=== PATIENT | male | born 1945 | race Caucasian/White ===

== ENCOUNTER → 2016-06-23 | Outpatient (CLI) | payer OTHER | END | disposition home or self-care (01) | LOC: CVU 10:30 | PROVIDERS: ATTEND Nurse Practitioner Family | DX: I73.9 Peripheral vascular disease, unspecified (principal); R60.0 Localized edema | CPT/HCPCS: 93970 ==

== ENCOUNTER 2016-07-01 10:21 | Day surgery (SDC) | payer OTHER ==
[2016-06-29 10:41] LABS: BLOOD UREA NITROGEN 13 mg/dL (7-18)
[2016-06-29 10:45] LABS: ASPARTATE AMINO TRANSFERASE 13 U/L (15-37)
[~2016-07-01] VITALS: Ht 172.7 cm; Wt 98.0 kg
[~2016-07-01 10:21] MED LIST: ATOR20TA9 PO; IBUP200C PO; LEVO88TA4 PO; OMEP-110 PO; TAMS0.4C2 PO
[2016-07-01] MEDS ORDERED: SODIUM CHLORIDE 0.9% 1,000 ML IV SCH (10:41)
[2016-07-01 10:42] VITALS: BP 129/91
[2016-07-01] MEDS ORDERED: MIDAZOLAM 1 MG/ML, 5ML ONE (12:31)
[2016-07-01] MEDS ORDERED: PROTAMINE SULFATE 10 MG/ML, 25ML ONE (12:31)
[2016-07-01] MEDS ORDERED: NITROGLYCERIN 5 MG/ML, 10ML ONE (12:32)
[2016-07-01] MEDS ORDERED: FLUMAZENIL 0.1 MG/1 ML, 5ML ONE (12:32)
[2016-07-01] MEDS ORDERED: FENTANYL PF 100 MCG/2ML ONE (12:32)
[2016-07-01] MEDS ORDERED: NALOXONE 1 MG/ML, 2ML ONE (12:32)
[2016-07-01] MEDS ORDERED: HEPARIN 1,000 UNITS/ML, 10ML ONE (12:32)
[2016-07-01] MEDS ORDERED: LIDOCAINE 2%, 20ML ONE (12:46)
[2016-07-01] MEDS ORDERED: VISIPAQUE 270 MG/ML, 150ML BOTTLE ONE (14:00)
[2016-07-01] MEDS ORDERED: CLOPIDOGREL 300 MG TABLET ONE (14:05)
== END 2016-07-01 16:35 | disposition home or self-care (01) ==
LOC: OUT 10:21
PROVIDERS: ATTEND Internal Medicine Cardiovascular Disease
DX: I70.211 Atherosclerosis of native arteries of extremities with intermittent claudication, right leg (principal); F17.210 Nicotine dependence, cigarettes, uncomplicated; J44.9 Chronic obstructive pulmonary disease, unspecified; F10.10 Alcohol abuse, uncomplicated; Z79.01 Long term (current) use of anticoagulants
CPT/HCPCS: 36415; 37220; 75625; 75716; 80053; 85025; 85610; 85730; 99156; C1725; C1760; C1769; C1894; C2623; J1644; J2250; J3010; J3490; J7030; Q9966; 99157; J2720; J2310

== ENCOUNTER 2016-09-03 09:58 | Inpatient (IN) | payer OTHER ==
[~2016-09-03] VITALS: Ht 172.7 cm; Wt 100.8 kg
[~2016-09-03 09:58] MED LIST changes: +CLOP75TA PO
[2016-09-03 10:34] VITALS: BP 109/77
[2016-09-03] MEDS ORDERED: LACTATED RINGERS 1,000 ML IV SCH (10:40)
[2016-09-03] MEDS ORDERED: LIDOCAINE 1%, 2ML SQ PRN (11:00)
[2016-09-03] MEDS ORDERED: KETAMINE 10 MG/ML, 20ML ONE (12:13)
[2016-09-03] MEDS ORDERED: FENTANYL PF 250 MCG/5ML ONE (12:13)
[2016-09-03] MEDS ORDERED: ROCURONIUM 10 MG/ML ONE (12:37)
[2016-09-03] MEDS ORDERED: CEFAZOLIN 1,000 MG ONE (12:37)
[2016-09-03] MEDS ORDERED: SUCCINYLCHOLINE 20 MG/ML, 10ML ONE (12:37)
[2016-09-03] MEDS ORDERED: PROPOFOL 10 MG/ML, 20ML ONE (12:37)
[2016-09-03] MEDS ORDERED: TRANEXAMIC ACID 100 MG/ML, 10ML ONE (12:59)
[2016-09-03] MEDS ORDERED: ACETAMINOPHEN 650 MG/20.3 ML UDC ONE (13:44)
[2016-09-03] MEDS ORDERED: OXYcodone 5 MG/5 ML ORAL.SOL UDC ONE (13:44)
[2016-09-03] MEDS ORDERED: FENTANYL PF 100 MCG/2ML ONE ×2 (13:44→14:32)
[2016-09-03] MEDS: FENTANYL PF 100 MCG/2ML IV PRN ×3 (13:45→14:34)
[2016-09-03] MEDS ORDERED: MEPERIDINE/PF 25MG/0.5ML ONE (13:50)
[2016-09-03] MEDS ORDERED: HYDROmorphone 1 MG/ML, 1ML ONE ×2 (13:50→14:28)
[2016-09-03] MEDS: HYDROmorphone 1 MG/ML, 1ML IV PRN ×5 (13:54→14:53)
[2016-09-03] MEDS ORDERED: ACETAMINOPHEN 325 MG TABLET PO PRN (14:00)
[2016-09-03] MEDS ORDERED: PROMETHAZINE 25 MG/ML, 1ML IV PRN (14:00)
[2016-09-03] MEDS ORDERED: ALBUTEROL SULFATE 2.5 MG/3 ML NPPB PRN (14:00)
[2016-09-03] MEDS ORDERED: MEPERIDINE/PF 25MG/0.5ML IVPush PRN (14:00)
[2016-09-03] MEDS ORDERED: ONDANSETRON 2MG/ML, 2ML IVPush PRN (14:00)
[2016-09-03] MEDS ORDERED: OXYcodone 5 MG/5 ML ORAL.SOL UDC PO PRN (14:00)
[2016-09-03] MEDS ORDERED: ONDANSETRON 2MG/ML, 2ML ONE (14:46)
[2016-09-03] MEDS ORDERED: BISACODYL 10 MG SUPP PR PRN (16:00)
[2016-09-03] MEDS ORDERED: ALUMINUM/MAG/SIMETHICONE 30 ML UDC PO PRN (16:00)
[2016-09-03] MEDS ORDERED: SENNA/DOCUSATE TABLET PO PRN (16:00)
[2016-09-03 16:30] VITALS: BP 107/71
[2016-09-03] MEDS ORDERED: ONDANSETRON 2MG/ML, 2ML IV PRN (16:30)
[2016-09-03] MEDS ORDERED: HYDROcodone/APAP 7.5-325MG/15ML UDC PO PRN (16:30)
[2016-09-03] MEDS: POTASSIUM CHLORIDE 10 MEQ in D5%-0.45% NACL 1,000 ML IV SCH (16:43)
[2016-09-03] MEDS: KETOROLAC 30 MG/1 ML IV SCH (16:43)
[2016-09-03] MEDS: DIAZEPAM 5 MG TABLET PO PRN ×2 (16:43→23:08)
[2016-09-03] MEDS ORDERED: CEFAZOLIN PMX 1GM/50ML 50 ML IVPB SCH (17:00)
[2016-09-03] MEDS: OXYcodone 5 MG/5 ML ORAL.SOL UDC PO PRN ×2 (18:04→23:08)
[2016-09-03] MEDS: DOCUSATE 100 MG CAPSULE PO SCH (20:23)
[2016-09-03] MEDS: CEFAZOLIN PMX 1GM/50ML 50 ML IVPB SCH (20:24)
[2016-09-03 20:32] VITALS: BP 104/71
[2016-09-03] MEDS ORDERED: ZOLPIDEM 5MG TABLET PO PRN (21:00)
[2016-09-03] MEDS ORDERED: DOCUSATE 100 MG CAPSULE PO SCH (21:00)
[2016-09-03 23:15] VITALS: BP 120/78
[2016-09-04] MEDS: KETOROLAC 30 MG/1 ML IV SCH ×2 (00:19→07:52)
[2016-09-04] MEDS: OXYcodone 5 MG/5 ML ORAL.SOL UDC PO PRN ×5 (03:17→23:01)
[2016-09-04 03:47] VITALS: BP 104/69
[2016-09-04] MEDS: DIAZEPAM 5 MG TABLET PO PRN ×2 (03:57→07:53)
[2016-09-04] MEDS: CEFAZOLIN PMX 1GM/50ML 50 ML IVPB SCH (04:53)
[2016-09-04] MEDS: LEVOTHYROXINE 88 MCG TABLET PO SCH (05:40)
[2016-09-04] MEDS: ENOXAPARIN 40 MG/0.4 ML SQ SCH (05:40)
[2016-09-04 06:46] VITALS: BP 112/77
[2016-09-04] MEDS: DOCUSATE 100 MG CAPSULE PO SCH ×2 (07:52→23:01)
[2016-09-04] MEDS: TAMSULOSIN 0.4 MG CAP.ER.24H PO SCH (07:53)
[2016-09-04] MEDS: MULTIVITAMINS/MINERALS TABLET PO SCH (07:53)
[2016-09-04] MEDS: CLOPIDOGREL 75 MG TABLET PO SCH (07:53)
[2016-09-04 09:27] VITALS: BP 105/67
[2016-09-04] MEDS: POTASSIUM CHLORIDE 10 MEQ in D5%-0.45% NACL 1,000 ML IV SCH (12:14)
[2016-09-04 13:29] VITALS: BP 115/79
[2016-09-04] MEDS: ACETAMINOPHEN 325 MG TABLET PO PRN (17:05)
[2016-09-04 18:24] VITALS: BP 102/68
[2016-09-05 01:07] VITALS: BP 110/72
[2016-09-05] MEDS: DIAZEPAM 5 MG TABLET PO PRN ×3 (02:43→21:37)
[2016-09-05] MEDS: OXYcodone 5 MG/5 ML ORAL.SOL UDC PO PRN ×4 (02:43→21:37)
[2016-09-05] MEDS: POTASSIUM CHLORIDE 10 MEQ in D5%-0.45% NACL 1,000 ML IV SCH ×2 (04:21→21:37)
[2016-09-05] MEDS: LEVOTHYROXINE 88 MCG TABLET PO SCH (06:34)
[2016-09-05] MEDS: ENOXAPARIN 40 MG/0.4 ML SQ SCH (06:34)
[2016-09-05 06:49] VITALS: BP 124/85
[2016-09-05] MEDS: TAMSULOSIN 0.4 MG CAP.ER.24H PO SCH (07:53)
[2016-09-05] MEDS: MULTIVITAMINS/MINERALS TABLET PO SCH (07:53)
[2016-09-05] MEDS: CLOPIDOGREL 75 MG TABLET PO SCH (07:54)
[2016-09-05] MEDS: DOCUSATE 100 MG CAPSULE PO SCH ×2 (07:56→21:39)
[2016-09-05] MEDS: MAGNESIUM HYDROXIDE 8%, 30ML UDC PO PRN (11:20)
[2016-09-05 12:45] VITALS: BP 100/70
[2016-09-05 21:43] VITALS: BP 119/75
[2016-09-06] MEDS: ACETAMINOPHEN 325 MG TABLET PO PRN (01:35)
[2016-09-06] MEDS: OXYcodone 5 MG/5 ML ORAL.SOL UDC PO PRN ×4 (01:35→22:13)
[2016-09-06] MEDS ORDERED: ASPI-650 PO ×2 (02:07→02:09)
[2016-09-06] MEDS ORDERED: OXYC-229 PO (02:07)
[2016-09-06 02:41] VITALS: BP 102/67
[2016-09-06] MEDS: ENOXAPARIN 40 MG/0.4 ML SQ SCH (05:06)
[2016-09-06] MEDS: LEVOTHYROXINE 88 MCG TABLET PO SCH (05:06)
[2016-09-06 08:02] VITALS: BP 109/68
[2016-09-06] MEDS: DOCUSATE 100 MG CAPSULE PO SCH ×2 (08:48→22:13)
[2016-09-06] MEDS: CLOPIDOGREL 75 MG TABLET PO SCH (08:48)
[2016-09-06] MEDS: TAMSULOSIN 0.4 MG CAP.ER.24H PO SCH (08:48)
[2016-09-06] MEDS: MULTIVITAMINS/MINERALS TABLET PO SCH (08:48)
[2016-09-06 14:00] VITALS: BP 124/77
[2016-09-06] MEDS: POTASSIUM CHLORIDE 10 MEQ in D5%-0.45% NACL 1,000 ML IV SCH (17:21)
[2016-09-06 18:36] VITALS: BP 112/79
[2016-09-06] MEDS ORDERED: ACETAMINOPHEN 325 MG TABLET PO PRN (20:00)
[2016-09-06] MEDS ORDERED: BISACODYL 10 MG SUPP PR PRN (20:00)
[2016-09-06] MEDS ORDERED: ZOLPIDEM 5MG TABLET PO PRN (20:00)
[2016-09-06] MEDS ORDERED: HYDROcodone/APAP 7.5-325MG/15ML UDC PO PRN (20:00)
[2016-09-06] MEDS ORDERED: SENNA/DOCUSATE TABLET PO PRN (20:00)
[2016-09-07 02:00] VITALS: BP 106/73
[2016-09-07] MEDS: LEVOTHYROXINE 88 MCG TABLET PO SCH (05:18)
[2016-09-07] MEDS: ENOXAPARIN 40 MG/0.4 ML SQ SCH (05:18)
[2016-09-07] MEDS: OXYcodone 5 MG/5 ML ORAL.SOL UDC PO PRN ×5 (05:24→17:36)
[2016-09-07] MEDS: MAGNESIUM HYDROXIDE 8%, 30ML UDC PO PRN (06:09)
[2016-09-07 07:25] VITALS: BP 114/76
[2016-09-07] MEDS: DOCUSATE 100 MG CAPSULE PO SCH ×2 (07:58→19:44)
[2016-09-07] MEDS: TAMSULOSIN 0.4 MG CAP.ER.24H PO SCH (07:58)
[2016-09-07] MEDS: MULTIVITAMINS/MINERALS TABLET PO SCH (07:58)
[2016-09-07] MEDS: CLOPIDOGREL 75 MG TABLET PO SCH (07:58)
[2016-09-07] MEDS: POTASSIUM CHLORIDE 10 MEQ in D5%-0.45% NACL 1,000 ML IV SCH (11:42)
[2016-09-07 14:35] VITALS: BP 109/74
[2016-09-07 18:53] VITALS: BP 112/77
[2016-09-07] MEDS: DIAZEPAM 5 MG TABLET PO PRN (19:44)
[2016-09-08] MEDS: OXYcodone 5 MG/5 ML ORAL.SOL UDC PO PRN ×5 (00:51→22:08)
[2016-09-08 01:36] VITALS: BP 104/71
[2016-09-08] MEDS: ENOXAPARIN 40 MG/0.4 ML SQ SCH (05:25)
[2016-09-08] MEDS: DIAZEPAM 5 MG TABLET PO PRN ×2 (05:25→22:08)
[2016-09-08] MEDS: LEVOTHYROXINE 88 MCG TABLET PO SCH (05:25)
[2016-09-08 07:35] VITALS: BP 109/72
[2016-09-08] MEDS: POTASSIUM CHLORIDE 10 MEQ in D5%-0.45% NACL 1,000 ML IV SCH ×2 (07:48→20:10)
[2016-09-08] MEDS: TAMSULOSIN 0.4 MG CAP.ER.24H PO SCH (09:17)
[2016-09-08] MEDS: DOCUSATE 100 MG CAPSULE PO SCH ×2 (09:17→20:10)
[2016-09-08] MEDS: MULTIVITAMINS/MINERALS TABLET PO SCH (09:17)
[2016-09-08] MEDS: CLOPIDOGREL 75 MG TABLET PO SCH (09:17)
[2016-09-08 12:57] VITALS: BP 113/72
[2016-09-08 13:27] VITALS: BP 116/76
[2016-09-08 19:45] VITALS: BP 124/78
[2016-09-09 04:18] VITALS: BP 110/76
[2016-09-09] MEDS: OXYcodone 5 MG/5 ML ORAL.SOL UDC PO PRN ×4 (04:20→15:15)
[2016-09-09] MEDS: ENOXAPARIN 40 MG/0.4 ML SQ SCH (04:39)
[2016-09-09] MEDS: LEVOTHYROXINE 88 MCG TABLET PO SCH (04:39)
[2016-09-09 08:20] VITALS: BP 119/77
[2016-09-09] MEDS: TAMSULOSIN 0.4 MG CAP.ER.24H PO SCH (09:34)
[2016-09-09] MEDS: CLOPIDOGREL 75 MG TABLET PO SCH (09:34)
[2016-09-09] MEDS: MULTIVITAMINS/MINERALS TABLET PO SCH (09:35)
[2016-09-09] MEDS: DOCUSATE 100 MG CAPSULE PO SCH (09:35)
[2016-09-09 14:04] VITALS: BP 101/72
== END 2016-09-09 16:04 | DRG 481 ==
LOC: ORIP 09:58 → EDSTATUS 12:30 → 4NOR 15:26
PROVIDERS: ADMIT Orthopaedic Surgery; ATTEND Orthopaedic Surgery
PROC: 0QH736Z Insertion of Intramedullary Internal Fixation Device into Left Upper Femur, Percutaneous Approach (ICD-10-PCS; principal; 2016-09-03 12:30)
DX: M84.559A Pathological fracture in neoplastic disease, hip, unspecified, initial encounter for fracture (principal); C79.51 Secondary malignant neoplasm of bone; Z87.891 Personal history of nicotine dependence; E03.9 Hypothyroidism, unspecified; I73.9 Peripheral vascular disease, unspecified; E78.5 Hyperlipidemia, unspecified; K21.9 Gastro-esophageal reflux disease without esophagitis; Z79.899 Other long term (current) drug therapy
CPT/HCPCS: 76000; 88304; 88311; 88341; 88342; 93005; C1713; J0690; J1170; J1650; J1885; J2175; J2405; J2704; J3010; J3480; J3490; G0461; J0330; J7120

== ENCOUNTER → 2016-09-11 | Outpatient (CLI) | payer OTHER ==
[~2016-09-11] MED LIST changes: +ASPI-650 PO; +GADOBUTROL 10 MMOL/10 ML PFS ONE; +LIDOCAINE 1%, 2ML ONE; +OXYC-229 PO
== END ==
LOC: RAD 15:46
PROVIDERS: ATTEND Radiology Radiation Oncology
DX: Z02.9 Encounter for administrative examinations, unspecified (principal)
CPT/HCPCS: A9585

== ENCOUNTER → 2016-10-28 | Outpatient (CLI) | payer OTHER ==
[~2016-10-28] MED LIST changes: -GADOBUTROL 10 MMOL/10 ML PFS ONE; -IBUP200C PO; +IBUP200C5 PO; -LIDOCAINE 1%, 2ML ONE; -OXYC-229 PO; +OXYC-307 PO
== END | disposition home or self-care (01) ==
LOC: ROC 06:43 → EDSTATUS 12:59
PROVIDERS: ATTEND Radiology Radiation Oncology
DX: C34.90 Malignant neoplasm of unspecified part of unspecified bronchus or lung (principal); G93.9 Disorder of brain, unspecified
CPT/HCPCS: 99213; G0463

== ENCOUNTER → 2016-11-02 | Outpatient (CLI) | payer OTHER ==
[~2016-11-02] MED LIST changes: +GADOBUTROL 10 MMOL/10 ML PFS ONE
== END | disposition home or self-care (01) ==
LOC: CFH 09:00
PROVIDERS: ATTEND Radiology Radiation Oncology
DX: C79.31 Secondary malignant neoplasm of brain (principal); C34.90 Malignant neoplasm of unspecified part of unspecified bronchus or lung; E11.9 Type 2 diabetes mellitus without complications
CPT/HCPCS: 70553; A9585

== ENCOUNTER 2016-12-11 08:52 | Inpatient (IN) | payer OTHER ==
[2016-12-10 11:26] LABS: HEMATOCRIT 29.1 % (39.2-51.8); HEMOGLOBIN 9.5 g/dL (13.7-18.0); WHITE BLOOD COUNT 5.5 x10^3/uL (3.4-10)
[2016-12-10 11:29] LABS: ASPARTATE AMINO TRANSFERASE 24 U/L (15-37); BLOOD UREA NITROGEN 16 mg/dL (7-18)
[2016-12-10 11:42] LABS: DIFF TOTAL CELLS COUNTED 100 CELL DIFF
[2016-12-10 11:45] LABS: ANISOCYTOSIS 2+; MICROCYTOSIS 1+; POLYCHROMASIA 1+; VERIFY COUNTS? YES
[2016-12-10 11:46] LABS: HYPOCHROMIA 1+
[2016-12-10 11:51] LABS: LARGE PLATELETS 1+; OVALOCYTES 1+
[~2016-12-11] VITALS: Ht 172.7 cm; Wt 82.0 kg
[~2016-12-11 08:52] MED LIST changes: +GABA300C10 PO; -GADOBUTROL 10 MMOL/10 ML PFS ONE; +MIRT15TA4 PO; +OXYC1TAB9 PO; +POLY17PO5 PO; +RIVA20TA PO; +SENN-66 PO
[2016-12-11] MEDS ORDERED: OxyconTIN ER 10 MG TAB.ER PO STA (09:21)
[2016-12-11] MEDS ORDERED: FAMOTIDINE 40 MG TABLET PO ONE (09:21)
[2016-12-11] MEDS ORDERED: ACETAMINOPHEN 500 MG TABLET PO STA (09:21)
[2016-12-11] MEDS ORDERED: ACETAMINOPHEN 500 MG TABLET ONE (09:25)
[2016-12-11] MEDS ORDERED: OxyconTIN ER 10 MG TAB.ER ONE (09:26)
[2016-12-11] MEDS ORDERED: LACTATED RINGERS 1,000 ML IV SCH (10:00)
[2016-12-11] MEDS ORDERED: VANCOMYCIN PER PHARMACY MC PRN (10:00)
[2016-12-11] MEDS: OxyconTIN ER 10 MG TAB.ER PO SCH (10:00)
[2016-12-11] MEDS ORDERED: VANCOMYCIN 1,500 MG in SODIUM CHLORIDE 0.9% 250 ML IV ONE (10:00)
[2016-12-11] MEDS ORDERED: LABETALOL 5MG/ML, 20ML IV PRN (10:30)
[2016-12-11] MEDS ORDERED: ACETAMINOPHEN 325 MG TABLET PO PRN ×2 (10:30→14:30)
[2016-12-11] MEDS ORDERED: hydrALAzine 20 MG/ML, 1ML IV PRN (10:30)
[2016-12-11] MEDS ORDERED: PROMETHAZINE 25 MG/ML, 1ML IV PRN (10:30)
[2016-12-11] MEDS ORDERED: MEPERIDINE/PF 25MG/0.5ML IVPush PRN (10:30)
[2016-12-11] MEDS ORDERED: ONDANSETRON 2MG/ML, 2ML IVPush PRN (10:30)
[2016-12-11] MEDS ORDERED: OXYcodone 5 MG/5 ML ORAL.SOL UDC PO PRN (10:30)
[2016-12-11] MEDS ORDERED: cloniDINE/PF 100 MCG/ML, 10 ML ONE (10:34)
[2016-12-11] MEDS ORDERED: TRANEXAMIC ACID 100 MG/ML, 10ML ONE ×2 (10:34)
[2016-12-11] MEDS ORDERED: KETOROLAC 60 MG/2 ML ONE (10:34)
[2016-12-11] MEDS ORDERED: VANCOMYCIN 1,000 MG ONE (10:35)
[2016-12-11] MEDS ORDERED: EPINEPHRINE 1 MG/ML, 1ML ONE (10:35)
[2016-12-11] MEDS ORDERED: ROPIvacaine/PF 0.2%, 20 ML ONE (10:36)
[2016-12-11] MEDS ORDERED: FLU VACC QS2017-18 (36MOS+) UP/PF 0.5 ML IM-VACC ONE (11:00)
[2016-12-11] MEDS ORDERED: CEFAZOLIN 1,000 MG ONE ×2 (11:11)
[2016-12-11] MEDS ORDERED: PROPOFOL 10 MG/ML, 20ML ONE (11:11)
[2016-12-11] MEDS ORDERED: OXYcodone 5 MG/5 ML ORAL.SOL UDC ONE (11:11)
[2016-12-11] MEDS ORDERED: ACETAMINOPHEN 650 MG/20.3 ML UDC ONE (11:11)
[2016-12-11] MEDS ORDERED: DEXAMETHASONE 4 MG/ML, 1ML ONE ×3 (11:11)
[2016-12-11] MEDS ORDERED: GLYCOPYRROLATE 0.2MG/1ML, 5ML ONE (11:11)
[2016-12-11] MEDS ORDERED: HYDROmorphone 1 MG/ML, 1ML ONE ×2 (11:11)
[2016-12-11] MEDS ORDERED: ROCURONIUM 10 MG/ML,10ML ONE ×2 (11:11)
[2016-12-11] MEDS ORDERED: MIDAZOLAM 1 MG/ML, 2ML ONE (11:11)
[2016-12-11] MEDS ORDERED: FENTANYL PF 100 MCG/2ML ONE ×5 (11:11)
[2016-12-11] MEDS ORDERED: ONDANSETRON 2MG/ML, 2ML ONE (11:11)
[2016-12-11] MEDS ORDERED: METOPROLOL 1 MG/ML, 5ML ONE (11:11)
[2016-12-11] MEDS ORDERED: NEOSTIGMINE 1 MG/ML, 10ML ONE (11:11)
[2016-12-11] MEDS ORDERED: PHENYLEPHRINE 10 MG/ML ONE (11:11)
[2016-12-11] MEDS: FENTANYL PF 100 MCG/2ML IV PRN ×5 (13:18→15:04)
[2016-12-11] MEDS: HYDROmorphone 1 MG/ML, 1ML IV PRN ×4 (13:18→14:08)
[2016-12-11] MEDS ORDERED: PROMETHAZINE 12.5 MG SUPP PR PRN (13:30)
[2016-12-11] MEDS ORDERED: ALUMINUM/MAG/SIMETHICONE 30 ML UDC PO PRN (13:30)
[2016-12-11] MEDS ORDERED: BISACODYL 10 MG SUPP PR PRN (13:30)
[2016-12-11] MEDS ORDERED: OXYcodone IR 5MG TABLET PO PRN (13:30)
[2016-12-11] MEDS ORDERED: ZOLPIDEM 5MG TABLET PO PRN (13:30)
[2016-12-11] MEDS ORDERED: DIAZEPAM 5 MG TABLET PO PRN (13:30)
[2016-12-11] MEDS ORDERED: HYDROcodone/APAP 10/325 MG TABLET PO PRN (13:30)
[2016-12-11] MEDS ORDERED: PROMETHAZINE 25 MG/ML, 1ML IM PRN (13:30)
[2016-12-11] MEDS ORDERED: DIPHENHYDRAMINE 25 MG CAPSULE PO PRN (13:30)
[2016-12-11] MEDS ORDERED: SENNA/DOCUSATE TABLET PO PRN (13:30)
[2016-12-11] MEDS ORDERED: ONDANSETRON 2MG/ML, 2ML IV PRN (13:30)
[2016-12-11] MEDS ORDERED: HYDROmorphone 1 MG/ML, 1ML IV PRN (13:30)
[2016-12-11] MEDS ORDERED: MAGNESIUM HYDROXIDE 8%, 30ML UDC PO PRN (13:30)
[2016-12-11] MEDS ORDERED: ONDANSETRON 4 MG TABLET PO PRN (13:30)
[2016-12-11] MEDS: OXYcodone IR 5MG TABLET PO SCH ×3 (13:30→21:30)
[2016-12-11] MEDS ORDERED: TRANEXAMIC ACID 1,000 MG in SODIUM CHLORIDE 0.9% 100 ML IVPB ONE (13:45)
[2016-12-11] MEDS: ACETAMINOPHEN 650 MG/20.3 ML UDC PO SCH ×2 (16:00→21:00)
[2016-12-11] MEDS: D5%-0.45% NACL 1,000 ML IV SCH ×2 (18:12→20:59)
[2016-12-11 19:26] VITALS: BP 96/64
[2016-12-11] MEDS: CEFAZOLIN PMX 2GM/50ML 50 ML IVPB SCH (20:59)
[2016-12-11] MEDS: GABAPENTIN 300 MG CAPSULE PO SCH (21:00)
[2016-12-11] MEDS: POLYETHYLENE GLYCOL 17 GM PACKET PO SCH (21:00)
[2016-12-11] MEDS: SENNA/DOCUSATE TABLET PO SCH (21:00)
[2016-12-12] VITALS (11 sets, daily range): BP systolic 91–110; BP diastolic 59–71
[2016-12-12] MEDS: MIRTAZAPINE 15 MG TABLET PO SCH ×2 (00:31→19:44)
[2016-12-12] MEDS: DOCUSATE 100 MG CAPSULE PO SCH ×3 (00:31→21:00)
[2016-12-12] MEDS: GABAPENTIN 300 MG CAPSULE PO SCH ×3 (00:31→17:09)
[2016-12-12] MEDS: OXYcodone IR 5MG TABLET PO SCH ×6 (01:30→18:38)
[2016-12-12] MEDS: D5%-0.45% NACL 1,000 ML IV SCH ×4 (01:53→21:19)
[2016-12-12] MEDS: OxyconTIN ER 10 MG TAB.ER PO SCH ×2 (03:28→15:34)
[2016-12-12 04:45] LABS: BLOOD UREA NITROGEN 20 mg/dL (7-18)
[2016-12-12 04:52] LABS: HEMATOCRIT 20.9 % (39.2-51.8)
[2016-12-12] MEDS: CEFAZOLIN PMX 2GM/50ML 50 ML IVPB SCH (05:39)
[2016-12-12 06:00] LABS: WHITE BLOOD COUNT 5.6 x10^3/uL (3.4-10)
[2016-12-12] MEDS ORDERED: DEXAMETHASONE 4 MG/ML, 1ML IVPush SCH (06:00)
[2016-12-12 06:01] LABS: HEMATOCRIT 19.9 % (39.2-51.8); HEMOGLOBIN 6.7 g/dL (13.7-18.0)
[2016-12-12] MEDS ORDERED: FUROSEMIDE 20 MG/2 ML IVPush ONE (06:30)
[2016-12-12 06:39] LABS: ANISOCYTOSIS 1+; DIFF TOTAL CELLS COUNTED 200 CELL DIFF; HYPOCHROMIA 1+; MICROCYTOSIS 1+; POLYCHROMASIA 1+; VERIFY COUNTS? YES
[2016-12-12 06:40] LABS: OVALOCYTES 1+
[2016-12-12] MEDS ORDERED: ENOXAPARIN 30 MG/0.3 ML SQ SCH (08:00)
[2016-12-12] MEDS: OMEPRAZOLE 20 MG CAPSULE.DR PO SCH (09:03)
[2016-12-12] MEDS: SENNA/DOCUSATE TABLET PO SCH ×2 (09:03→19:44)
[2016-12-12] MEDS: MULTIVITAMINS/MINERALS TABLET PO SCH (09:04)
[2016-12-12] MEDS: LEVOTHYROXINE 88 MCG TABLET PO SCH (09:04)
[2016-12-12] MEDS: TAMSULOSIN 0.4 MG CAP.ER.24H PO SCH (09:04)
[2016-12-12] MEDS: ACETAMINOPHEN 650 MG/20.3 ML UDC PO SCH ×3 (09:06→19:46)
[2016-12-12] MEDS: POLYETHYLENE GLYCOL 17 GM PACKET PO SCH ×2 (09:11→19:44)
[2016-12-12] MEDS: KETOROLAC 30 MG/1 ML IV SCH ×2 (13:30→19:45)
[2016-12-12] MEDS: ENOXAPARIN 30 MG/0.3 ML SQ SCH (19:43)
[2016-12-13] MEDS: OXYcodone IR 5MG TABLET PO SCH ×6 (01:30→21:30)
[2016-12-13 01:32] VITALS: BP 110/72
[2016-12-13] MEDS: GABAPENTIN 300 MG CAPSULE PO SCH ×4 (02:00→21:43)
[2016-12-13] MEDS: OxyconTIN ER 10 MG TAB.ER PO SCH ×2 (02:43→15:34)
[2016-12-13] MEDS: D5%-0.45% NACL 1,000 ML IV SCH ×3 (02:43→21:44)
[2016-12-13 04:47] LABS: HEMATOCRIT 25.7 % (39.2-51.8); HEMOGLOBIN 8.6 g/dL (13.7-18.0); WHITE BLOOD COUNT 5.5 x10^3/uL (3.4-10)
[2016-12-13 04:54] LABS: BLOOD UREA NITROGEN 12 mg/dL (7-18)
[2016-12-13] MEDS: LEVOTHYROXINE 88 MCG TABLET PO SCH (05:09)
[2016-12-13] MEDS: KETOROLAC 30 MG/1 ML IV SCH (05:24)
[2016-12-13 07:30] VITALS: BP 115/76
[2016-12-13] MEDS: ENOXAPARIN 30 MG/0.3 ML SQ SCH ×2 (08:34→18:28)
[2016-12-13] MEDS: MULTIVITAMINS/MINERALS TABLET PO SCH (09:00)
[2016-12-13] MEDS: DOCUSATE 100 MG CAPSULE PO SCH ×2 (09:40→21:43)
[2016-12-13] MEDS: TAMSULOSIN 0.4 MG CAP.ER.24H PO SCH (09:41)
[2016-12-13] MEDS: POLYETHYLENE GLYCOL 17 GM PACKET PO SCH ×2 (09:41→21:43)
[2016-12-13] MEDS: ACETAMINOPHEN 650 MG/20.3 ML UDC PO SCH ×4 (09:42→21:44)
[2016-12-13] MEDS: SENNA/DOCUSATE TABLET PO SCH ×2 (09:43→21:43)
[2016-12-13] MEDS: OMEPRAZOLE 20 MG CAPSULE.DR PO SCH (09:43)
[2016-12-13 13:46] VITALS: BP 112/71
[2016-12-13 20:53] VITALS: BP 118/77
[2016-12-13] MEDS: MIRTAZAPINE 15 MG TABLET PO SCH (21:43)
[2016-12-14 00:48] VITALS: BP 126/81
[2016-12-14] MEDS: OXYcodone IR 5MG TABLET PO SCH ×4 (01:30→13:30)
[2016-12-14] MEDS: OxyconTIN ER 10 MG TAB.ER PO SCH ×2 (03:03→15:00)
[2016-12-14 04:39] LABS: HEMATOCRIT 26.5 % (39.2-51.8); HEMOGLOBIN 8.9 g/dL (13.7-18.0)
[2016-12-14] MEDS: LEVOTHYROXINE 88 MCG TABLET PO SCH (05:24)
[2016-12-14 07:24] VITALS: BP 111/67
[2016-12-14] MEDS: MULTIVITAMINS/MINERALS TABLET PO SCH (09:00)
[2016-12-14] MEDS: POLYETHYLENE GLYCOL 17 GM PACKET PO SCH (09:00)
[2016-12-14] MEDS ORDERED: LIDOCAINE 1%, 20ML ONE (09:44)
[2016-12-14] MEDS ORDERED: FENTANYL PF 100 MCG/2ML ONE (09:49)
[2016-12-14] MEDS ORDERED: MIDAZOLAM 1 MG/ML, 5ML ONE (09:50)
[2016-12-14] MEDS ORDERED: FLUMAZENIL 0.1 MG/1 ML, 5ML ONE (09:50)
[2016-12-14] MEDS ORDERED: NALOXONE 1 MG/ML, 2ML ONE (09:50)
[2016-12-14] MEDS ORDERED: CEFAZOLIN PMX 1GM/50ML 50 ML ONE (10:03)
[2016-12-14 11:05] VITALS: BP 156/73
[2016-12-14 14:08] VITALS: BP 142/50
[2016-12-14] MEDS: ACETAMINOPHEN 650 MG/20.3 ML UDC PO SCH ×2 (14:22→16:00)
[2016-12-14] MEDS: SENNA/DOCUSATE TABLET PO SCH (14:23)
[2016-12-14] MEDS: OMEPRAZOLE 20 MG CAPSULE.DR PO SCH (14:24)
[2016-12-14] MEDS: GABAPENTIN 300 MG CAPSULE PO SCH ×2 (14:24→16:00)
[2016-12-14] MEDS: TAMSULOSIN 0.4 MG CAP.ER.24H PO SCH (14:25)
[2016-12-14] MEDS: DOCUSATE 100 MG CAPSULE PO SCH (14:27)
== END 2016-12-14 17:25 | disposition home or self-care (01) | DRG 469 ==
LOC: ORIP 08:52 → 3NW 15:23
PROVIDERS: ADMIT Orthopaedic Surgery; ATTEND Orthopaedic Surgery
PROC: 0QB70ZZ Excision of Left Upper Femur, Open Approach (ICD-10-PCS; 2016-12-11)
PROC: 0QP704Z Removal of Internal Fixation Device from Left Upper Femur, Open Approach (ICD-10-PCS; 2016-12-11)
PROC: 0SRB02A Replacement of Left Hip Joint with Metal on Polyethylene Synthetic Substitute, Uncemented, Open Approach (ICD-10-PCS; principal; 2016-12-11 11:00)
PROC: 30233N1 Transfusion of Nonautologous Red Blood Cells into Peripheral Vein, Percutaneous Approach (ICD-10-PCS; 2016-12-14)
DX: M84.55 Pathological fracture in neoplastic disease, pelvis and femur (principal); E43 Unspecified severe protein-calorie malnutrition; C79.51 Secondary malignant neoplasm of bone; I48.91 Unspecified atrial fibrillation; C34.90 Malignant neoplasm of unspecified part of unspecified bronchus or lung; D63.0 Anemia in neoplastic disease; E03.9 Hypothyroidism, unspecified; N40.0 Benign prostatic hyperplasia without lower urinary tract symptoms; Z96.642 Presence of left artificial hip joint; Z68.27 Body mass index [BMI] 27.0-27.9, adult; Z79.01 Long term (current) use of anticoagulants; Z85.118 Personal history of other malignant neoplasm of bronchus and lung; Z86.718 Personal history of other venous thrombosis and embolism
CPT/HCPCS: 36415; 36561; 72170; 76937; 77001; 80048; 80053; 82040; 83036; 85014; 85018; 85025; 85610; 85730; 86850; 86900; 86923; 87081; 87147; 88300; 88304; 88307; 88311; 90686; 93005; 99156; 99157; C1713; J0171; J0690; J1100; J1170; J1650; J1885; J2250; J2405; J2704; J2710; J2795; J3010; J3370; J3490; C1776; C1788; J0735; J1642; J1940; J2310; J2370; J7050; J7120; P9016

== ENCOUNTER 2017-01-10 18:07 | Inpatient (IN) | payer OTHER ==
[~2017-01-10] VITALS: Ht 175.3 cm; Wt 72.8 kg
[2017-01-10] MEDS ORDERED: ACETAMINOPHEN 500 MG TABLET ONE (18:38)
[2017-01-10] MEDS ORDERED: ONDANSETRON 2MG/ML, 2ML IVPush ONE (19:00)
[2017-01-10] MEDS ORDERED: ACETAMINOPHEN 500 MG TABLET PO ONE (19:00)
[2017-01-10] MEDS ORDERED: SODIUM CHLORIDE 0.9% 1,000ML IVBOLUS ONE ×2 (19:00→20:30)
[2017-01-10 19:18] LABS: HEMATOCRIT 31.5 % (39.2-51.8); HEMOGLOBIN 10.2 g/dL (13.7-18.0); WHITE BLOOD COUNT 28.3 x10^3/uL (3.4-10)
[2017-01-10 19:27] LABS: BLOOD UREA NITROGEN 24 mg/dL (7-18)
[2017-01-10 19:30] LABS: ASPARTATE AMINO TRANSFERASE 51 U/L (15-37)
[2017-01-10 19:39] LABS: DIFF TOTAL CELLS COUNTED 100 CELL DIFF
[2017-01-10 19:41] LABS: ANISOCYTOSIS 3+; VERIFY COUNTS? YES
[2017-01-10 19:42] LABS: HYPOCHROMIA 1+; MICROCYTOSIS 1+; OVALOCYTES 1+; POLYCHROMASIA 1+
[2017-01-10 20:17] LABS: RAPID INFLUENZA A Negative (Negative); RAPID INFLUENZA B Negative (Negative)
[2017-01-10] MEDS ORDERED: PIPERACILLIN/TAZO/PMX 3.375GM 50 ML IVPB ONE (20:30)
[2017-01-10] MEDS ORDERED: VANCOMYCIN PER PHARMACY IV ONE (20:30)
[2017-01-10] MEDS ORDERED: PIPERACILLIN/TAZO/PMX 3.375GM 50 ML ONE (20:32)
[2017-01-10] MEDS ORDERED: VANCOMYCIN 1,500 MG in SODIUM CHLORIDE 0.9% 250 ML IV ONE (21:00)
[2017-01-10] MEDS ORDERED: SODIUM CHLORIDE 0.9%, 500ML IVBOLUS ONE (21:00)
[2017-01-10] MEDS: SODIUM CHLORIDE 0.9% 1,000 ML IV SCH (21:47)
[2017-01-10 21:53] VITALS: BP 91/61
[2017-01-10] MEDS ORDERED: ONDANSETRON 2MG/ML, 2ML IVPush PRN (22:00)
[2017-01-10] MEDS ORDERED: PIPERACILLIN/TAZO/PMX 3.375GM 50 ML IV SCH (22:00)
[2017-01-10] MEDS ORDERED: VANCOMYCIN PER PHARMACY MC PRN (22:00)
[2017-01-10] MEDS ORDERED: ACETAMINOPHEN 325 MG TABLET PO PRN (22:00)
[2017-01-10] MEDS ORDERED: PHARMACOKINETIC MONITORING MC PRN (22:30)
[2017-01-10] MEDS ORDERED: PHARMACOKINETIC CONSULTATION MC ONE (22:30)
[2017-01-10] MEDS: POLYETHYLENE GLYCOL 17 GM PACKET PO SCH (22:36)
[2017-01-10] MEDS: SENNA/DOCUSATE TABLET PO SCH (22:36)
[2017-01-10] MEDS: GABAPENTIN 300 MG CAPSULE PO SCH (22:36)
[2017-01-10] MEDS: OXYcodone/APAP 10/325MG TABLET PO PRN (23:40)
[2017-01-11 02:00] VITALS: BP 96/62
[2017-01-11] MEDS ORDERED: PIPERACILLIN/TAZO/PMX 3.375GM 50 ML IV SCH (02:30)
[2017-01-11] MEDS: PIPERACILLIN/TAZO 3.375 GM in SODIUM CHLORIDE 0.9% 50 ML IVPB SCH ×4 (02:35→20:24)
[2017-01-11] MEDS: SODIUM CHLORIDE 0.9% 1,000 ML IV SCH ×3 (05:47→23:00)
[2017-01-11 05:52] LABS: HEMATOCRIT 26.7 % (39.2-51.8); HEMOGLOBIN 8.7 g/dL (13.7-18.0); WHITE BLOOD COUNT 27.6 x10^3/uL (3.4-10)
[2017-01-11 05:56] LABS: ASPARTATE AMINO TRANSFERASE 29 U/L (15-37); BLOOD UREA NITROGEN 19 mg/dL (7-18)
[2017-01-11 07:35] VITALS: BP 106/68
[2017-01-11] MEDS: POLYETHYLENE GLYCOL 17 GM PACKET PO SCH ×2 (08:25→20:14)
[2017-01-11] MEDS: SENNA/DOCUSATE TABLET PO SCH ×2 (08:25→20:24)
[2017-01-11] MEDS: RIVAROXABAN 20 MG TABLET PO SCH (08:25)
[2017-01-11] MEDS: TAMSULOSIN 0.4 MG CAP.ER.24H PO SCH (08:25)
[2017-01-11] MEDS: GABAPENTIN 300 MG CAPSULE PO SCH ×3 (08:25→20:24)
[2017-01-11] MEDS: LEVOTHYROXINE 88 MCG TABLET PO SCH (08:26)
[2017-01-11] MEDS ORDERED: MEGESTROL ACETATE 400 MG/10 ML ML PO SCH (09:00)
[2017-01-11] MEDS ORDERED: MEGESTROL 40MG TABLET PO SCH (09:00)
[2017-01-11] MEDS ORDERED: MAGNESIUM CITRATE 300ML ORAL SOL PO PRN (10:00)
[2017-01-11] MEDS ORDERED: BISACODYL 10 MG SUPP PR PRN (10:00)
[2017-01-11 14:04] VITALS: BP 97/60
[2017-01-11 20:00] VITALS: BP 91/60
[2017-01-11] MEDS ORDERED: VANCOMYCIN 1,500 MG in SODIUM CHLORIDE 0.9% 250 ML IV SCH (22:00)
[2017-01-12 02:00] VITALS: BP 92/58
[2017-01-12] MEDS: PIPERACILLIN/TAZO 3.375 GM in SODIUM CHLORIDE 0.9% 50 ML IVPB SCH ×4 (02:08→21:34)
[2017-01-12 05:30] LABS: HEMATOCRIT 24.5 % (39.2-51.8); HEMOGLOBIN 7.9 g/dL (13.7-18.0)
[2017-01-12 05:37] LABS: BLOOD UREA NITROGEN 15 mg/dL (7-18)
[2017-01-12] MEDS: LEVOTHYROXINE 88 MCG TABLET PO SCH (06:00)
[2017-01-12] MEDS ORDERED: DEXAMETHASONE 4 MG TABLET PO SCH (09:00)
[2017-01-12] MEDS: GABAPENTIN 300 MG CAPSULE PO SCH ×3 (09:02→21:34)
[2017-01-12] MEDS: RIVAROXABAN 20 MG TABLET PO SCH (09:02)
[2017-01-12] MEDS: TAMSULOSIN 0.4 MG CAP.ER.24H PO SCH (09:02)
[2017-01-12] MEDS: SENNA/DOCUSATE TABLET PO SCH ×2 (09:03→21:35)
[2017-01-12] MEDS: POLYETHYLENE GLYCOL 17 GM PACKET PO SCH ×2 (09:03→21:35)
[2017-01-12] MEDS: SODIUM CHLORIDE 0.9% 1,000 ML IV SCH ×2 (09:05→17:19)
[2017-01-12 09:12] VITALS: BP 90/55
[2017-01-12 13:19] VITALS: BP 93/60
[2017-01-12] MEDS: OXYcodone/APAP 10/325MG TABLET PO PRN (13:25)
[2017-01-12 19:48] VITALS: BP 97/60
[2017-01-13] MEDS: SODIUM CHLORIDE 0.9% 1,000 ML IV SCH ×2 (00:34→10:12)
[2017-01-13 00:50] VITALS: BP 100/65
[2017-01-13] MEDS: PIPERACILLIN/TAZO 3.375 GM in SODIUM CHLORIDE 0.9% 50 ML IVPB SCH ×2 (03:08→10:15)
[2017-01-13] MEDS: LEVOTHYROXINE 88 MCG TABLET PO SCH (05:57)
[2017-01-13 07:47] VITALS: BP 94/62
[2017-01-13] MEDS: GABAPENTIN 300 MG CAPSULE PO SCH (10:15)
[2017-01-13] MEDS: TAMSULOSIN 0.4 MG CAP.ER.24H PO SCH (10:16)
[2017-01-13] MEDS: RIVAROXABAN 20 MG TABLET PO SCH (10:16)
[2017-01-13] MEDS: SENNA/DOCUSATE TABLET PO SCH (10:17)
[2017-01-13] MEDS: POLYETHYLENE GLYCOL 17 GM PACKET PO SCH (10:17)
[2017-01-13 10:19] LABS: HEMATOCRIT 24.2 % (39.2-51.8); HEMOGLOBIN 7.9 g/dL (13.7-18.0); WHITE BLOOD COUNT 20.4 x10^3/uL (3.4-10)
[2017-01-13 10:29] LABS: ASPARTATE AMINO TRANSFERASE 64 U/L (15-37); BLOOD UREA NITROGEN 14 mg/dL (7-18)
[2017-01-13] MEDS ORDERED: DEXA4TAB PO (11:54)
[2017-01-13] MEDS ORDERED: AMOX1TAB64 PO (11:54)
== END 2017-01-13 15:30 | disposition home or self-care (01) | DRG 871 ==
LOC: ED 19:27 → SUATTDRO 20:51 → EDIP 21:06 → 4EST 22:05 → 3NW 01-12 15:15
PROVIDERS: ADMIT Family Medicine; ATTEND Family Medicine
DX: A41.9 Sepsis, unspecified organism (principal); E43 Unspecified severe protein-calorie malnutrition; J18.9 Pneumonia, unspecified organism; D68.69 Other thrombophilia; D89.9 Disorder involving the immune mechanism, unspecified; E87.1 Hypo-osmolality and hyponatremia; L89.629 Pressure ulcer of left heel, unspecified stage; C34.90 Malignant neoplasm of unspecified part of unspecified bronchus or lung; M48.54XA Collapsed vertebra, not elsewhere classified, thoracic region, initial encounter for fracture; N39.0 Urinary tract infection, site not specified; D64.9 Anemia, unspecified; R65.20 Severe sepsis without septic shock; E03.9 Hypothyroidism, unspecified; E27.9 Disorder of adrenal gland, unspecified; F17.210 Nicotine dependence, cigarettes, uncomplicated; I73.9 Peripheral vascular disease, unspecified; N40.0 Benign prostatic hyperplasia without lower urinary tract symptoms; Z85.118 Personal history of other malignant neoplasm of bronchus and lung; Z86.711 Personal history of pulmonary embolism; Z92.21 Personal history of antineoplastic chemotherapy; Z68.23 Body mass index [BMI] 23.0-23.9, adult
CPT/HCPCS: 36415; 71010; 71250; 80048; 80053; 81001; 82040; 83605; 84145; 85025; 87040; 87086; 87205; 87400; 96365; 96375; J2543; J3370; J7030; J7050

== ENCOUNTER → 2017-01-20 | Outpatient (CLI) | payer OTHER ==
[~2017-01-20] MED LIST changes: +AMOX1TAB64 PO; +DEXA4TAB PO
== END | disposition home or self-care (01) ==
LOC: ROC 08:08
PROVIDERS: ATTEND Radiology Radiation Oncology
DX: Z08 Encounter for follow-up examination after completed treatment for malignant neoplasm (principal); C34.90 Malignant neoplasm of unspecified part of unspecified bronchus or lung; G93.89 Other specified disorders of brain; M89.8X8 Other specified disorders of bone, other site
CPT/HCPCS: 99213; G0463